=== PATIENT | female | born 1970 | race Caucasian/White ===

== ENCOUNTER → 2017-12-19 | Day surgery (SDC) | payer OTHER ==
--- NOTE | 2017-12-18 12:54 | History & Physical Pre-Op ---
General Information and HPI History of Present Illness: This patient is a 47-year-old 3 para 1 who presented to the physician's office complaining of pelvic pain and lack of menses. She previously underwent LEEP procedure in August 2017 uncomplicated resulting in MARIYA-1. On examination in the physician's office she was noted to have a stenotic cervical os and ultrasound revealed a 5 cm hematocolpos. She is admitted today as outpatient surgery for evacuation of blood. Allergies/Medications Allergies: Coded Allergies: amoxicillin (From AUGMENTIN) (THROAT CLOSURE 07/18/16) clavulanic acid (From AUGMENTIN) (THROAT CLOSURE 07/18/16) Past History Medical History Renal: nephrolithiasis STORE MGR/Reproductive: 1 Surgical History Pertinent Surgical History: breast biopsy, LEEP Review of Systems Review of Systems Constitutional: Reports: no symptoms. EENTM: Reports: no symptoms. Cardiovascular: Reports: no symptoms. Respiratory: Reports: no symptoms. GI: Reports: no symptoms. Genitourinary: Reports: see HPI. Musculoskeletal: Reports: no symptoms. Skin: Reports: no symptoms. Neurological/Psychological: Reports: no symptoms. Hematologic/Endocrine: Reports: no symptoms. Immunologic/Allergic: Reports: no symptoms. All Other Systems: Reviewed and Negative Exam & Diagnostic Data Last 24 Hrs of Vital Signs/I&O Intake & Output 12/18 1600 12/18 0800 12/18 0000 Intake Total Output Total Balance Patient 176 lb Weight Physical Exam: HEENT: Normocephalic atraumatic Chest: Clear to auscultation bilaterally Cardiovascular: Normal S1, S2 Abdomen: Soft nontender pelvic: Large anterior mass behind cervix Extremities: No clubbing cyanosis or edema Assessment/Plan Assessment/Plan: Hematocolpos Evacuation As Ranked By This Provider Problem List: 1. Hematocolpometra
[~2017-12-19] VITALS: Ht 182.9 cm; Wt 79.8 kg
--- NOTE | 2017-12-20 10:35 | Operative Report ---
Operative/Inv Procedure Report Surgery Date: 12/19/17 Name of Procedure: Examination under anesthesia and evacuation of Hematocolpos Pre-Operative Diagnosis: Hematocolpos Post-Operative Diagnosis: Same Estimated Blood Loss: less than 50ml Surgeon/Enterer: Brett Read MD Anesthesia: laryngeal mask airway Operative/Procedure Note Note: The patient was brought to the operating room placed on the OR table in the dorsal supine position. She was given adequate anesthesia and in LMA mask was placed. She was repositioned into modified dorsal lithotomy and prepped and draped in the usual sterile fashion. Examination under anesthesia revealed a large protruding mass which had completely stretched out her cervix. A weighted speculum was inserted into the vagina and a single-tooth tenaculum was attached to wear and the anterior lip of the cervix was thought to be. Retraction was placed on this throughout the case. There was no definite cervical os noted and probing with a lacrimal duct dilator did not reveal any opening. Therefore a needle was placed into the cervix where the os should be and revealed a large amount of old bloody fluid. The hole created by the needle was serially dilated and the contents were suctioned out revealing old clot. A pursestring suture was placed around the opening of the cervix for hemostasis. A Word catheter was also placed into the canal and sutured to the cervix. The instruments removed the patient was awakened and sent to recovery in good condition. All needle, sponge, and instrument counts were correct at the end of the procedure 2.
== END ==
LOC: STS 01:58
DX: N89.7 Hematocolpos (principal); N88.2 Stricture and stenosis of cervix uteri; F17.200 Nicotine dependence, unspecified, uncomplicated
CPT/HCPCS: 81025; J2250

== ENCOUNTER 2018-02-23 17:03 | Emergency (ER) | payer OTHER ==
[~2018-02-23] VITALS: Ht 182.9 cm; Wt 79.4 kg
[2018-02-23 17:18] VITALS: BP 117/77
[2018-02-23] MEDS ORDERED: CLINDAMYCIN HC300 M1 PO (18:19)
[2018-02-23] MEDS ORDERED: PERCOCET 5-3251 EACH PO (18:19)
--- NOTE | 2018-02-23 18:20 | ED SKIN/ALLERGY COMPLAINT ---
History of Present Illness General Chief Complaint: Skin Rash/ Abcess Stated Complaint: PAIN IN ARMPIT, ? ABSCESS Source: patient, family Exam Limitations: no limitations Vital Signs & Intake/Output Vital Signs & Intake/Output Vital Signs Date Time Temp Pulse Resp B/P B/P Pulse O2 O2 Flow FiO2 Mean Ox Delivery Rate 02/23 1718 98.4 96 16 117/77 98 Room Air Allergies Coded Allergies: amoxicillin (From AUGMENTIN) (THROAT CLOSURE 07/18/16) clavulanic acid (From AUGMENTIN) (THROAT CLOSURE 07/18/16) Reconcile Medications Clindamycin HCl 300 MG CAPSULE 1 CAP PO TID ABSCESS Oxycodone HCl/Acetaminophen (Percocet 5-325 MG Tablet) 5 MG-325 MG TABLET 1 TAB PO BID ABSCESS Triage Note: PT TO ER C/C ?ABSCESS TO LEFT AXILLA X 1 WEEK. DENIES FEVERS/CHILLS. Triage Nurses Notes Reviewed? yes : No Patient currently breastfeeds: No HPI: 47F no PMH with 5 days of an expanding left axillary abscess. Noticed it 5 days ago, was small, kept it clean but it has been growing and it is now painful. There has been no drainage or trauma. No systemic symptoms, including no fever, chills, decreased appetite, n/v, chest pain. Past History Travel History Traveled to [place] past 21 day No Medical History Any Pertinent Medical History? see below for history Renal: nephrolithiasis DIRECTOR OF FOOD AND NUTRITION/Reproductive: 1 Surgical History Surgical History: breast biopsy, LEEP Psychosocial History What is your primary language Macedonian Tobacco Use: Current Daily Use Daily Tobacco Use Amount/Type: => 5 Cigarettes daily Family History Hx Contributory? No Review of Systems Review of Systems Constitutional: Reports: no symptoms. EENTM: Reports: no symptoms. Respiratory: Reports: no symptoms. Cardiovascular: Reports: no symptoms. GI: Reports: no symptoms. Genitourinary: Reports: no symptoms. Musculoskeletal: Reports: no symptoms. Skin: Reports: no symptoms. Neurological/Psychological: Reports: no symptoms. Hematologic/Endocrine: Reports: no symptoms. Immunologic/Allergic: Reports: no symptoms. All Other Systems: Reviewed and Negative Physical Exam Physical Exam General Appearance: well developed/nourished, mild distress Head: atraumatic Eyes: Bilateral: normal appearance. Ears, Nose, Throat: normal pharynx, normal ENT inspection, hearing grossly normal Neck: normal inspection, supple Respiratory: normal breath sounds Cardiovascular: regular rate/rhythm Gastrointestinal: soft, non-tender Back: normal inspection Extremities: normal inspection, normal range of motion, no edema Neurologic/Psych: awake, alert, oriented x 3, normal mood/affect Skin: Left erythematous axillary abscess, 4cm Lymphatic: no anterior cervical shashi Progress Differential Diagnosis: abscess/cellulitis, allergic reaction, anaphylaxis, angioedema, asthma, contact dermatitis, drug reaction, erythema multiforme, lyme disease, meningitis/sepsis, piyriasis rosea, RMSF, scarlet fever, shingles, syphilis/gonococcemia, toxic shock syndrome, urticaria Plan of Care: Abscess was incised and drained at the bedside. See procedure note for details. Departure Departure Disposition: HOME OR SELF CARE Condition: Stable Clinical Impression Primary Impression: Abscess of axilla, left Referrals: Patient Has No Primary Care Dr (PCP/Family) Additional Instructions: Follow up with your PCP. Return to emergency department in 2 days for a wound check. Replace the gauze when it becomes damp, wet, or soiled. Keep the area clean and dry. You can shower and use soap. If you notice any new symptoms like fever, chills, worsening of the abscess, or any other new or worsening symptoms, return to emergency department. Please finish all your antibiotics. Departure Forms: Customer Survey General Discharge Information Prescriptions: Current Visit Scripts Clindamycin HCl 1 CAP PO TID #30 CAP Oxycodone HCl/Acetaminophen (Percocet 5-325 MG Tablet) 1 TAB PO BID #10 TAB Procedures Incision and Drainage Site: Left axilla Blade Size: 11 I & D Procedure: Yes: betadine prep, sterile dressing applied. No: sterile drapes applied, wick placed. Progress: Area was cleaned with betadine. Lidocaine was placed. A 2cm incision was made with an 11-blade. The abscess was compressed with significant drainage of thick white purulent material. The incision was explored with a alis clamp. Sterile gauze was placed. Tolerated well. EBL<10mL.
== END 2018-02-23 18:28 ==
LOC: ERH 17:03
DX: L02.412 Cutaneous abscess of left axilla (principal)

== ENCOUNTER → 2018-06-05 | Day surgery (SDC) | payer OTHER ==
--- NOTE | 2018-06-04 19:02 | History & Physical Pre-Op ---
General Information and HPI History of Present Illness: Patient is a 48-year-old 1 para 1 platelet of menorrhagia. She originally had a LEEP performed 3 years ago and developed hematocolpos from scarring. That was evacuated and the patient has chronic heavy periods. She is admitted today for D&C hysteroscopy with NovaSure ablation. Allergies/Medications Allergies: Coded Allergies: amoxicillin (From AUGMENTIN) (THROAT CLOSURE 07/18/16) clavulanic acid (From AUGMENTIN) (THROAT CLOSURE 07/18/16) Home Med list Clindamycin HCl 300 MG CAPSULE 1 CAP PO TID ABSCESS Oxycodone HCl/Acetaminophen (Percocet 5-325 MG Tablet) 5 MG-325 MG TABLET 1 TAB PO BID ABSCESS Past History Medical History Renal: nephrolithiasis DIRECTOR OF MATERIALS/Reproductive: 1 Surgical History Pertinent Surgical History: breast biopsy, LEEP Exam & Diagnostic Data Last 24 Hrs of Vital Signs/I&O Intake & Output 06/04 1600 / 0800 06/04 0000 Intake Total Output Total Balance Patient 171 lb Weight Physical Exam: HEENT: On the cephalic atraumatic Chest: Clear to auscultation bilaterally Cardiovascular: Normal S1-S2 Abdomen: Soft nontender nondistended Pelvic: Deferred OR Extremities: No clubbing cyanosis or edema and Neurologic: Nonfocal Assessment/Plan Assessment/Plan: Menorrhagia Plan: D&C hysteroscopy with NovaSure ablation As Ranked By This Provider Problem List: 1. Menorrhagia
[~2018-06-05] VITALS: Ht 182.9 cm; Wt 77.6 kg
[~2018-06-05] MED LIST: CLINDAMYCIN HC300 M1 PO; PERCOCET 5-3251 EACH PO
--- NOTE | 2018-06-06 09:45 | Operative Report ---
Operative/Inv Procedure Report Surgery Date: 06/05/18 Name of Procedure: D&C hysteroscopy NovaSure ablation Pre-Operative Diagnosis: Menorrhagia Post-Operative Diagnosis: Same Estimated Blood Loss: scant Surgeon/Eyeglass Frames Inspector: Brett Read MD Anesthesia: laryngeal mask airway Operative/Procedure Note Note: The patient was taken to the operating room placed on the OR table in the dorsal supine position. After she was given adequate anesthesia she was successfully intubated with an LMA. She was prepped and draped in usual sterile fashion. A weighted speculum was inserted into the vagina and with the help of a [place] retractor the anterior lip of the cervix was grasped. Endocervical curettage was performed after lidocaine injection in 4 quadrants. This curettage revealed a small amount of tissue. The uterus was then sounded to 9 cm. The cervix was dilated to accommodate the hysteroscope which was placed in the fundus and the saline saline infusion was activated. Shaggy endometrium was noted with no polyps or fibroids were there. The hysteroscope was removed and the cervix was further dilated. An endometrial curettage was performed revealing a moderate amount of tissue. The NovaSure ablation was primed and placed into the uterus and the cavity assessment passed. The ablation then took place a wattage of 140 W for approximately 75 seconds. At the end of the procedure the instrument was removed intact and hemostasis was verified. The instruments were removed from the vagina the patient was then awakened and sent to recovery in good condition. All needle, sponge, and aspirin counts were correct at the end of the procedure
== END ==
LOC: STS 03:34
DX: N92.0 Excessive and frequent menstruation with regular cycle (principal); N85.9 Noninflammatory disorder of uterus, unspecified; F17.200 Nicotine dependence, unspecified, uncomplicated
CPT/HCPCS: 81025; 88305; J2250